=== PATIENT | female | born 2000 | race African-American/Black ===

== ENCOUNTER 2020-11-28 01:05 | Emergency (ER) | payer OTHER ==
[~2020-11-28] VITALS: Ht 175.3 cm; Wt 97.0 kg
[2020-11-28] MEDS ORDERED: MORPHINE SULFATE 2 MG/ML CPJ (NOT FOR IM USE) IV ONE (01:30)
[2020-11-28 01:43] LABS: CHLORIDE 104 mEq/L (98-107)
[2020-11-28 01:44] VITALS: BP 139/83
[2020-11-28 01:45] LABS: BASOPHILS % 0.8 % (0.0-2.0); EOSINOPHILS % 2.1 % (0.0-5.0); HEMATOCRIT. 38.3 % (36.0-48.0); HEMOGLOBIN. 12.4 g/dL (12.0-16.0); LYMPHOCYTES % 36.2 % (20.0-50.0); MEAN CORPUSCULAR HEMOGLOBIN 27.7 pg (28.0-32.0); MEAN CORPUSCULAR VOLUME 85.6 fL (81.0-99.0); MEAN PLATELET VOLUME 8.5 fl (7.4-10.4); MONOCYTES % 7.6 % (2.0-8.0); NEUTROPHILS % 53.3 % (40.0-76.0); PLATELET 291 x1000/uL (130-400); RED BLOOD CELL COUNT 4.47 mill/uL (4.2-5.4); RED CELL DISTRIBUTION WIDTH 13.7 % (11.6-14.6)
[2020-11-28 01:47] LABS: ETHANOL BLOOD < 10 mg/dL; PROTHROMBIN TIME 10.7 sec (9.6-11.0)
[2020-11-28 02:03] LABS: HCG SCREEN NEGATIVE
== END 2020-11-28 02:17 | disposition short-term general hospital (02) ==
LOC: ER 01:05
DX: S31.119A Laceration without foreign body of abdominal wall, unspecified quadrant without penetration into peritoneal cavity, initial encounter (principal); X99.8XXA Assault by other sharp object, initial encounter; Y93.89 Activity, other specified; Y92.488 Other paved roadways as the place of occurrence of the external cause
CPT/HCPCS: 36415; 71045; 74018; 80053; 80320; 84703; 85025; 85610; 93005; 96374; 99285; J2270; G0480